=== PATIENT | female | born 2000 | race African-American/Black ===

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

== ENCOUNTER 2020-06-03 15:00 | Inpatient (IN) | payer OTHER ==
[2020-06-03] MEDS ORDERED: CITRIC ACID/SODIUM CITRATE 30 ML UNIT-DOSE CUP PO ONE ×2 (15:21→15:22)
[2020-06-03] MEDS ORDERED: ELECTROLYTE-148 SOLN 500 ML IV ONE (15:21)
[2020-06-03] MEDS ORDERED: ELECTROLYTE-148 SOLN 1,000 ML IV SCH (15:30)
[2020-06-03 15:42] VITALS: BMI 25.4
[2020-06-03] MEDS ORDERED: morphine SULFATE/PF 0.5 MG/ML (2cc Syringe - QUVA) ONE (16:02)
[2020-06-03] MEDS ORDERED: ceFAZolin SODIUM 1 GM VIAL ONE (16:50)
[2020-06-03] MEDS ORDERED: ONDANSETRON 4 MG/2 ML VIAL IVPUSH PRN (16:56)
[2020-06-03] MEDS ORDERED: OXYTOCIN 10 UNITS/ML VIAL ONE (17:13)
[2020-06-03] MEDS ORDERED: BENZOCAINE 20% 57 GM BOTTLE TP PRN (17:24)
[2020-06-03] MEDS ORDERED: IBUPROFEN 800 MG/8 ML IJ IVPB PRN (17:24)
[2020-06-03] MEDS ORDERED: METHYLERGONOVINE MALEATE 0.2 MG/1 ML AMP IM PRN (17:24)
[2020-06-03] MEDS ORDERED: oxyCODONE HCL 5 MG TABLET PO PRN (17:24)
[2020-06-03] MEDS ORDERED: IBUPROFEN 600 MG TABLET (FP) PO PRN (17:24)
[2020-06-03] MEDS ORDERED: SENNOSIDES/DOCUSATE COMBO (SENNA PLUS) TABLET (UD) PO PRN (17:24)
[2020-06-03] MEDS ORDERED: OXYTOCIN 20 UNITS in 0.9% NS 20 UNIT/1,000 ML INFUS.BAG IV SCH (17:30)
[2020-06-03] MEDS ORDERED: IBUPROFEN 800 MG/8 ML IJ IVPB ONE (19:15)
[2020-06-03] MEDS: FERROUS SO4 325 MG TABLET (FP) PO SCH (22:57)
[2020-06-04 08:48] LABS: BASO % 0.7 % (0-2.0); EOS % 1.4 % (0-4.5); HEMATOCRIT 33.7 % (32.4-45.2); HEMOGLOBIN 11.2 GM/dL (10.7-15.3); LYMPH % 8.6 % (8-40); MCH 28.3 pg (25.7-33.7); MCHC 33.2 g/dl (32.0-36.0); MEAN CELL VOLUME 85.5 fl (80-96); MEAN PLT VOLUME 9.3 fl (7.5-11.1); MONO % 7.2 % (3.8-10.2); NEUT % 82.1 % (42.8-82.8); PLATELET COUNT 167 K/MM3 (134-434); RBC 3.95 M/mm3 (3.60-5.2); RDW 15.9 % (11.6-15.6); WHITE BLOOD COUNT 14.1 K/mm3 (4.0-10.0)
[2020-06-04] MEDS: FERROUS SO4 325 MG TABLET (FP) PO SCH ×2 (10:15→21:56)
[2020-06-04] MEDS: PRENATAL VITAMINS W/ FOLIC ACID TABLET (FP) PO SCH (10:15)
[2020-06-04] MEDS: ACETAMINOPHEN 325 MG TABLET (FP) PO PRN ×3 (10:28→21:57)
[2020-06-04] MEDS: IBUPROFEN 600 MG TABLET (FP) PO PRN ×3 (10:29→21:57)
[2020-06-04] MEDS: SIMETHICONE 80 MG TAB.CHEW (FP) PO PRN ×2 (15:39→21:56)
[2020-06-04] MEDS ORDERED: BISACODYL 10 MG SUPP.RECT RC PRN (17:24)
[2020-06-05] MEDS: FERROUS SO4 325 MG TABLET (FP) PO SCH ×2 (09:53→20:58)
[2020-06-05] MEDS: PRENATAL VITAMINS W/ FOLIC ACID TABLET (FP) PO SCH (09:53)
[2020-06-05] MEDS: ACETAMINOPHEN 325 MG TABLET (FP) PO PRN (12:23)
[2020-06-05] MEDS: IBUPROFEN 600 MG TABLET (FP) PO PRN (12:24)
[2020-06-05] MEDS: SIMETHICONE 80 MG TAB.CHEW (FP) PO PRN (14:15)
[2020-06-06] MEDS: ACETAMINOPHEN 325 MG TABLET (FP) PO PRN (06:07)
[2020-06-06] MEDS: IBUPROFEN 600 MG TABLET (FP) PO PRN (06:07)
[2020-06-06] MEDS: SIMETHICONE 80 MG TAB.CHEW (FP) PO PRN (06:08)
[2020-06-06 08:13] LABS: BASO % 0.5 % (0-2.0); EOS % 3.5 % (0-4.5); HEMATOCRIT 32.8 % (32.4-45.2); HEMOGLOBIN 10.9 GM/dL (10.7-15.3); LYMPH % 15.9 % (8-40); MCH 28.4 pg (25.7-33.7); MCHC 33.2 g/dl (32.0-36.0); MEAN CELL VOLUME 85.5 fl (80-96); MONO % 7.1 % (3.8-10.2); PLATELET COUNT 195 K/MM3 (134-434); RBC 3.84 M/mm3 (3.60-5.2); WHITE BLOOD COUNT 9.6 K/mm3 (4.0-10.0)
[2020-06-06] MEDS: FERROUS SO4 325 MG TABLET (FP) PO SCH (10:19)
[2020-06-06] MEDS: PRENATAL VITAMINS W/ FOLIC ACID TABLET (FP) PO SCH (10:19)
[2020-06-06 12:53] VITALS: BP 107/70; PULSE 70; TEMP 98.5
== END 2020-06-06 12:20 | disposition home or self-care (01) | DRG 540 ==
LOC: JLDR 15:00 → J3W 20:49
PROVIDERS: ADMIT Obstetrics & Gynecology; ATTEND Obstetrics & Gynecology
PROC: 10D00Z1 Extraction of Products of Conception, Low, Open Approach (ICD-10-PCS; principal; 2020-06-03)
DX: O34.211 Maternal care for low transverse scar from previous cesarean delivery (principal); O26.893 Other specified pregnancy related conditions, third trimester; Z3A.39 39 weeks gestation of pregnancy; Z37.0 Single live birth; Z87.891 Personal history of nicotine dependence
CPT/HCPCS: 36415; 85025; 88307-TC

== ENCOUNTER 2024-10-23 10:14 | Emergency (ER) | payer SELFPAY ==
[2024-10-23 10:22] VITALS: RESP 18; TEMP 98.3; BMI 20.8
[2024-10-23] MEDS: SODIUM CHLORIDE 1,000 ML IV STA (11:31)
[2024-10-23 11:35] LABS: HEMOGLOBIN 13.2 g/dL (11.2-15.7); MCHC 31.4 g/dl (32.2-35.5); MEAN CELL VOLUME 89.6 fl (79.4-94.8); PLATELET COUNT 246 x10^3/uL (182-369); RDW 13.9 % (12.1-16.5)
[2024-10-23 11:54] LABS: POTASSIUM 3.6 mmol/L (3.5-5.1)
[2024-10-23 11:57] LABS: ALBUMIN 4.3 g/dl (3.4-5.0); BLOOD UREA NITROGEN 9.3 mg/dL (7-18); CALCIUM 9.7 mg/dL (8.5-10.1); MAGNESIUM 2.4 mg/dL (1.8-2.4)
[2024-10-23 12:02] LABS: BILIRUBIN,TOTAL 0.6 mg/dL (0.2-1); TOT PROT 7.5 g/dl (6.4-8.2)
[2024-10-23 12:49] LABS: HCV DIAGNOSTIC IN-HOUSE W/RFLX NON-REACTIVE (NONREACTIVE); HIV INTERPRETATION NEGATIVE (NEGATIVE)
[2024-10-23] MEDS ORDERED: KETOROLAC TROMETHAMINE 30 MG/1 ML VIAL ONE (13:01)
[2024-10-23] MEDS: KETOROLAC TROMETHAMINE 15 MG/ML VIAL IVPUSH ONE (13:04)
[2024-10-23 14:46] VITALS: BP 106/58; PULSE 64
== END 2024-10-23 13:31 | disposition home or self-care (01) ==
LOC: JER 10:14
PROC: 3E0333Z Introduction of Anti-inflammatory into Peripheral Vein, Percutaneous Approach (ICD-10-PCS; principal; 2024-10-23)
PROC: 3E0337Z Introduction of Electrolytic and Water Balance Substance into Peripheral Vein, Percutaneous Approach (ICD-10-PCS; 2024-10-23)
DX: R07.89 Other chest pain (principal); R20.2 Paresthesia of skin; R29.898 Other symptoms and signs involving the musculoskeletal system; M43.6 Torticollis; M79.602 Pain in left arm
CPT/HCPCS: 36415; 71046-TC-FY; 80053; 83735; 84484; 84703; 85027; 86803; 87389; 93005; 93010; 99285-25